=== PATIENT | female | born 1960 | race Caucasian/White ===

== ENCOUNTER 2022-03-05 16:33 | Inpatient (IN) ==
[2022-03-05] MEDS ORDERED: SODIUM CHLORIDE 0.9% 1,000 ML IV STA (17:10)
[2022-03-05 17:56] LABS: Basophils % 0.2 % (0.0-0.8); Hematocrit 44.3 VOL% (35.7-47.0); Hemoglobin 14.3 GM/DL (12.0-16.0); Immature Granulocytes % 0.3 %; Immature Granulocytes Absolute 0.02 #; Lymphocytes # 1.1 10*3/uL (1.4-4.0); Lymphocytes % 17.2 % (21.3-54.2); Mean Corpuscular HGB Conc 32.3 GM/DL (32-36); Mean Corpuscular Volume 91.5 FL (87-102); Mean Platelet Volume 12.5 FL (9.6-12.0); Monocytes # 0.9 10*3/uL (0.11-0.8); Monocytes % 14.4 % (1.7-12.7); Neutrophils % 67.9 % (38.7-73.9); Platelet Count 134 T/CUMM (130-400); Red Blood Count 4.84 MC/CUMM (3.8-5.5); Red Cell Distribution Width 13.6 % (9.3-17.3); White Blood Count 6.2 T/CUMM (4-12)
[2022-03-05 18:17] LABS: Alanine Aminotransferase 17 U/L (13-56); Albumin 3.6 G/DL (3.4-5.0); Alkaline Phosphatase 80 U/L (45-117); Aspartate Amino Transferase 24 U/L (0-37); Blood Urea Nitrogen 23 MG/DL (7-18); Calcium 8.8 MG/DL (8.5-10.1); Carbon Dioxide 25 MMOL/L (21-32); Chloride 105 MMOL/L (98-107); Glucose 109 MG/DL (74-106); Osmolality,Calculated 283.4 MOS/KG (273-304); Potassium 3.5 MMOL/L (3.5-5.1); Sodium 140 MMOL/L (136-145); Total Protein 7.8 G/DL (6.4-8.2)
[2022-03-05 18:27] LABS: Salicylate < 2.8 MG/DL (2.8-20)
[2022-03-05 18:28] LABS: Acetaminophen < 2.0 UG/ML (10-30)
[2022-03-05 19:55] LABS: Urine Appearance Clear (Clear); Urine Color Yellow (Yellow); Urine pH 5.5 (4.5-8.0)
[2022-03-05 19:56] LABS: Bilirubin,Urine Small mg/dL (Negative); Blood, Urine Small mg/dL (Negative); Glucose,Urine (UA) Negative (Negative); Ketones,Urine 40 mg/dL (Negative); Nitrite,Urine Negative (Negative); Protein,Urine 100 mg/dL (Negative); Urine Specific Gravity >= 1.030 (1.001-1.035); Urine Urobilinogen 0.2 eU/dL (<2.0)
[2022-03-05 19:58] LABS: Bacteria,Urine Occasional /HPF (Few); Granular Casts,Urine 3 /LPF (0-1); Mucus,Urine Occasional /LPF (Occasional); RBC,Urine 7 /HPF (0-4); Squamous Epithelial Cell,Urine Occasional /HPF (0-10)
[2022-03-05 20:06] LABS: Barbiturates Screen,Urine Negative (Negative); Benzodiazepines Screen,Urine Negative (Negative); Cannabinoid Screen,Urine Negative (Negative); Opiate Screen,Urine Negative (Negative); Phencyclidine Screen,Urine Negative (Negative)
[2022-03-05 20:42] LABS: Arterial Base Excess iSTAT -2 MMOL/L (-2.5-2.5); Arterial Bicarbonate iSTAT 22.9 MMOL/L (20-26); Arterial O2 Saturation iSTAT 90 % (95-100); Arterial PCO2 iSTAT 37 MM HG (35-48); Arterial PO2 iSTAT 58 MM HG (80-95); Arterial Total CO2 iSTAT 24 MMO/L (23-27); Arterial pH iSTAT 7.402 (7.35-7.45)
[2022-03-05] MEDS ORDERED: GLUCAGON 1 MG VIAL IM PRN (21:02)
[2022-03-05] MEDS ORDERED: ONDANSETRON 4 MG/2 ML VIAL IV PRN (21:16)
[2022-03-05] MEDS ORDERED: ALBUTEROL 2.5 MG/3 ML NEB RESP TX PRN (21:16)
[2022-03-05] MEDS ORDERED: ACETAMINOPHEN 325 MG TABLET PO PRN (21:16)
[2022-03-05] MEDS ORDERED: DEXTROSE 10% 250 ML BAG IV PRN (21:34)
[2022-03-06] MEDS ORDERED: AZITHROMYCIN INJ 500 MG in SODIUM CHLORIDE 0.9% 250 ML IV ONE (00:21)
[2022-03-06] MEDS ORDERED: MELATONIN 3 MG TABLET PO PRN (00:21)
[2022-03-06] MEDS: DEXTROSE 5% NACL 0.9% 1,000 ML IV SCH ×2 (01:08→08:27)
[2022-03-06] MEDS: ENOXAPARIN 40 MG/0.4 ML SYRINGE SUBCUT SCH ×2 (01:08→22:39)
[2022-03-06] MEDS ORDERED: REMDESIVIR 200 MG in SODIUM CHLORIDE 0.9% 210 ML IV ONE (03:00)
[2022-03-06 04:06] LABS: Basophils % 0.5 % (0.0-0.8); Hematocrit 41.6 VOL% (35.7-47.0); Hemoglobin 13.3 GM/DL (12.0-16.0); Immature Granulocytes % 0.5 %; Immature Granulocytes Absolute 0.03 #; Lymphocytes # 1.5 10*3/uL (1.4-4.0); Lymphocytes % 23.4 % (21.3-54.2); Mean Corpuscular Volume 92.4 FL (87-102); Mean Platelet Volume 12.8 FL (9.6-12.0); Monocytes # 0.7 10*3/uL (0.11-0.8); Monocytes % 11.5 % (1.7-12.7); Neutrophils % 64.1 % (38.7-73.9); Platelet Count 122 T/CUMM (130-400); Red Cell Distribution Width 13.6 % (9.3-17.3); White Blood Count 6.2 T/CUMM (4-12)
[2022-03-06 05:51] LABS: INR 1.1; PT Patient Result 11.8 SECS (10.5-12.0)
[2022-03-06 06:40] LABS: Albumin 2.9 G/DL (3.4-5.0); Bilirubin,Total 0.5 MG/DL (0.20-1.00); Osmolality,Calculated 280.4 MOS/KG (273-304); Potassium 3.4 MMOL/L (3.5-5.1); Thyroid Stimulating Hormone 1.69 uIU/ml (0.358-3.74); Total Protein 6.4 G/DL (6.4-8.2)
[2022-03-06 06:42] LABS: Ferritin 322.7 ng/mL (8-252)
[2022-03-06] MEDS ORDERED: POTASSIUM CHLORIDE 20 MEQ TABLET PO ONE (08:24)
[2022-03-06] MEDS: INSULIN REGULAR 100 UNIT/ML SUBCUT SCH ×4 (08:27→22:38)
[2022-03-06] MEDS: ASCORBIC ACID 500 MG TABLET PO SCH ×2 (09:02→21:15)
[2022-03-06] MEDS: ZINC GLUCONATE 50 MG TABLET PO SCH (09:02)
[2022-03-06] MEDS: PANTOPRAZOLE 40 MG TABLET PO SCH (09:02)
[2022-03-06] MEDS: CHOLECALCIFEROL 1,000 UNIT TABLET PO SCH (09:02)
[2022-03-06] MEDS: DEXAMETHASONE 4 MG/1 ML VIAL IV SCH (09:05)
[2022-03-07 05:19] LABS: Basophils % 0.3 % (0.0-0.8); Hematocrit 42.1 VOL% (35.7-47.0); Hemoglobin 13.8 GM/DL (12.0-16.0); Immature Granulocytes % 0.6 %; Immature Granulocytes Absolute 0.04 #; Lymphocytes # 2.5 10*3/uL (1.4-4.0); Lymphocytes % 35.7 % (21.3-54.2); Mean Corpuscular HGB Conc 32.8 GM/DL (32-36); Mean Platelet Volume 13.1 FL (9.6-12.0); Monocytes # 1.1 10*3/uL (0.11-0.8); Monocytes % 15.5 % (1.7-12.7); Neutrophils % 47.9 % (38.7-73.9); Platelet Count 154 T/CUMM (130-400); Red Blood Count 4.68 MC/CUMM (3.8-5.5); Red Cell Distribution Width 13.5 % (9.3-17.3)
[2022-03-07 05:43] LABS: Albumin 3.3 G/DL (3.4-5.0); Bilirubin,Total 0.6 MG/DL (0.20-1.00); Calcium 8.9 MG/DL (8.5-10.1); Osmolality,Calculated 277.5 MOS/KG (273-304); Potassium 3.2 MMOL/L (3.5-5.1); Total Protein 6.9 G/DL (6.4-8.2)
[2022-03-07 05:57] LABS: Ferritin 331.4 ng/mL (8-252)
[2022-03-07 07:10] LABS: Anisocytosis Slight; Platelet Estimate Normal
[2022-03-07] MEDS ORDERED: POTASSIUM CHLORIDE 20 MEQ TABLET PO ONE (08:29)
[2022-03-07] MEDS: INSULIN REGULAR 100 UNIT/ML SUBCUT SCH ×3 (08:46→17:22)
[2022-03-07] MEDS ORDERED: AZITHROMYCIN 250 MG TABLET PO SCH (09:00)
[2022-03-07] MEDS: CHOLECALCIFEROL 1,000 UNIT TABLET PO SCH (10:16)
[2022-03-07] MEDS: PANTOPRAZOLE 40 MG TABLET PO SCH (10:16)
[2022-03-07] MEDS: ZINC GLUCONATE 50 MG TABLET PO SCH (10:16)
[2022-03-07] MEDS: ASCORBIC ACID 500 MG TABLET PO SCH ×2 (10:17→21:15)
[2022-03-07] MEDS: DEXAMETHASONE 4 MG/1 ML VIAL IV SCH (10:28)
[2022-03-07] MEDS: REMDESIVIR 100 MG in SODIUM CHLORIDE 0.9% 100 ML IV SCH (10:32)
[2022-03-07] MEDS: LOPERAMIDE 2 MG CAPSULE PO PRN (18:04)
[2022-03-07] MEDS: SERTRALINE 100 MG TABLET PO SCH (21:15)
[2022-03-07] MEDS: ENOXAPARIN 40 MG/0.4 ML SYRINGE SUBCUT SCH (21:15)
[2022-03-08 05:31] LABS: Basophils % 0.3 % (0.0-0.8); Hematocrit 42.6 VOL% (35.7-47.0); Immature Granulocytes % 0.8 %; Immature Granulocytes Absolute 0.05 #; Lymphocytes # 2.4 10*3/uL (1.4-4.0); Lymphocytes % 36.5 % (21.3-54.2); Mean Corpuscular HGB Conc 32.9 GM/DL (32-36); Mean Corpuscular Volume 90.1 FL (87-102); Mean Platelet Volume 12.9 FL (9.6-12.0); Monocytes # 1.2 10*3/uL (0.11-0.8); Neutrophils % 44.4 % (38.7-73.9); Platelet Count 160 T/CUMM (130-400); Red Blood Count 4.73 MC/CUMM (3.8-5.5); Red Cell Distribution Width 13.3 % (9.3-17.3); White Blood Count 6.6 T/CUMM (4-12)
[2022-03-08 05:58] LABS: Albumin 3.6 G/DL (3.4-5.0); Bilirubin,Total 0.6 MG/DL (0.20-1.00); Potassium 3.5 MMOL/L (3.5-5.1); Total Protein 6.6 G/DL (6.4-8.2)
[2022-03-08 06:02] LABS: Ferritin 335.4 ng/mL (8-252)
[2022-03-08 06:28] LABS: Lymphocytes 33 % (20-55); Total Cells Counted 100
[2022-03-08 06:29] LABS: Atypical Lymphocytes Few
[2022-03-08 06:30] LABS: Ovalocytes Few; Platelet Estimate Adequate; Polychromasia Slight
[2022-03-08] MEDS: ZINC GLUCONATE 50 MG TABLET PO SCH (09:23)
[2022-03-08] MEDS: LOPERAMIDE 2 MG CAPSULE PO PRN (09:23)
[2022-03-08] MEDS: ASCORBIC ACID 500 MG TABLET PO SCH ×2 (09:24→22:10)
[2022-03-08] MEDS: CHOLECALCIFEROL 1,000 UNIT TABLET PO SCH (09:24)
[2022-03-08] MEDS: PANTOPRAZOLE 40 MG TABLET PO SCH (09:24)
[2022-03-08] MEDS: DEXAMETHASONE 4 MG/1 ML VIAL IV SCH (09:30)
[2022-03-08] MEDS: REMDESIVIR 100 MG in SODIUM CHLORIDE 0.9% 100 ML IV SCH (09:35)
[2022-03-08] MEDS ORDERED: guaiFENesin 200 MG/10 ML UDCUP PO PRN (11:47)
[2022-03-08] MEDS: LOSARTAN 25 MG TABLET PO SCH (12:28)
[2022-03-08] MEDS ORDERED: QUEtiapine 100 MG TABLET PO SCH (21:00)
[2022-03-08] MEDS: GABAPENTIN 300 MG CAPSULE PO SCH (22:10)
[2022-03-08] MEDS: SERTRALINE 100 MG TABLET PO SCH (22:10)
[2022-03-08] MEDS: ENOXAPARIN 40 MG/0.4 ML SYRINGE SUBCUT SCH (22:10)
[2022-03-09] MEDS ORDERED: SODIUM CHLORIDE 0.9% 1,000 ML IV ONE (01:29)
[2022-03-09 04:31] LABS: Basophils % 0.2 % (0.0-0.8); Hematocrit 38.5 VOL% (35.7-47.0); Hemoglobin 12.5 GM/DL (12.0-16.0); Immature Granulocytes % 0.6 %; Immature Granulocytes Absolute 0.03 #; Lymphocytes # 1.5 10*3/uL (1.4-4.0); Lymphocytes % 30.8 % (21.3-54.2); Mean Corpuscular HGB Conc 32.5 GM/DL (32-36); Mean Corpuscular Volume 89.7 FL (87-102); Mean Platelet Volume 12.2 FL (9.6-12.0); Monocytes % 20.3 % (1.7-12.7); Neutrophils % 48.1 % (38.7-73.9); Platelet Count 136 T/CUMM (130-400); Red Blood Count 4.29 MC/CUMM (3.8-5.5); Red Cell Distribution Width 13.5 % (9.3-17.3); White Blood Count 4.9 T/CUMM (4-12)
[2022-03-09 04:56] LABS: Band Neutrophils 1 % (0-10); Lymphocytes 23 % (20-55); Total Cells Counted 100
[2022-03-09 04:58] LABS: Albumin 2.7 G/DL (3.4-5.0); Bilirubin,Total 0.5 MG/DL (0.20-1.00); Hypochromia Slight; Osmolality,Calculated 284.3 MOS/KG (273-304); Platelet Estimate Adequate; Potassium 3.2 MMOL/L (3.5-5.1); Total Protein 5.7 G/DL (6.4-8.2)
[2022-03-09 04:59] LABS: Ferritin 235.8 ng/mL (8-252)
[2022-03-09] MEDS ORDERED: POTASSIUM CHLORIDE 20 MEQ TABLET PO ONE (08:41)
[2022-03-09] MEDS: ZINC GLUCONATE 50 MG TABLET PO SCH (10:56)
[2022-03-09] MEDS: CHOLECALCIFEROL 1,000 UNIT TABLET PO SCH (10:56)
[2022-03-09] MEDS: ASCORBIC ACID 500 MG TABLET PO SCH ×2 (10:56→22:03)
[2022-03-09] MEDS: PANTOPRAZOLE 40 MG TABLET PO SCH (10:57)
[2022-03-09] MEDS: LOSARTAN 25 MG TABLET PO SCH (10:57)
[2022-03-09] MEDS: DEXAMETHASONE 4 MG/1 ML VIAL IV SCH (10:58)
[2022-03-09] MEDS: REMDESIVIR 100 MG in SODIUM CHLORIDE 0.9% 100 ML IV SCH (11:03)
[2022-03-09] MEDS: LOPERAMIDE 2 MG CAPSULE PO PRN (15:45)
[2022-03-09] MEDS: GABAPENTIN 300 MG CAPSULE PO SCH (22:04)
[2022-03-09] MEDS: SERTRALINE 100 MG TABLET PO SCH (22:04)
[2022-03-09] MEDS: ENOXAPARIN 40 MG/0.4 ML SYRINGE SUBCUT SCH (22:04)
[2022-03-10 04:55] LABS: Basophils % 0.3 % (0.0-0.8); Hematocrit 40.7 VOL% (35.7-47.0); Hemoglobin 13.2 GM/DL (12.0-16.0); Immature Granulocytes % 1.2 %; Immature Granulocytes Absolute 0.09 #; Lymphocytes # 2.2 10*3/uL (1.4-4.0); Lymphocytes % 30.8 % (21.3-54.2); Mean Corpuscular HGB Conc 32.4 GM/DL (32-36); Mean Corpuscular Volume 90.4 FL (87-102); Mean Platelet Volume 12.8 FL (9.6-12.0); Monocytes # 1.1 10*3/uL (0.11-0.8); Monocytes % 15.2 % (1.7-12.7); Neutrophils % 52.5 % (38.7-73.9); Platelet Count 155 T/CUMM (130-400); Red Cell Distribution Width 13.6 % (9.3-17.3); White Blood Count 7.3 T/CUMM (4-12)
[2022-03-10 05:22] LABS: Albumin 3.2 G/DL (3.4-5.0); Bilirubin,Total 0.5 MG/DL (0.20-1.00); Calcium 8.6 MG/DL (8.5-10.1); Osmolality,Calculated 285.4 MOS/KG (273-304); Potassium 3.9 MMOL/L (3.5-5.1); Total Protein 6.4 G/DL (6.4-8.2)
[2022-03-10 05:27] LABS: Ferritin 220.7 ng/mL (8-252)
[2022-03-10 09:30] VITALS: BP 153/86
[2022-03-10] MEDS: ZINC GLUCONATE 50 MG TABLET PO SCH (09:54)
[2022-03-10] MEDS: LOSARTAN 25 MG TABLET PO SCH (09:54)
[2022-03-10] MEDS: PANTOPRAZOLE 40 MG TABLET PO SCH (09:54)
[2022-03-10] MEDS: ASCORBIC ACID 500 MG TABLET PO SCH (09:54)
[2022-03-10] MEDS: CHOLECALCIFEROL 1,000 UNIT TABLET PO SCH (09:54)
[2022-03-10] MEDS: DEXAMETHASONE 4 MG/1 ML VIAL IV SCH (09:55)
[2022-03-10] MEDS: REMDESIVIR 100 MG in SODIUM CHLORIDE 0.9% 100 ML IV SCH (09:55)
== END 2022-03-10 14:45 | disposition home or self-care (01) | DRG 177 ==
LOC: N.EDINP 16:33 → N.ED 16:33 → N.EDINP 03-06 01:56 → N.TELEN 03-06 02:25
PROVIDERS: ADMIT Hospitalist; ATTEND Hospitalist